=== PATIENT | male | born 1995 | race Two or more races ===

== ENCOUNTER 2022-11-18 15:19 | Emergency (ER) | payer OTHER ==
[~2022-11-18] VITALS: Ht 175.3 cm; Wt 77.1 kg
== END 2022-11-18 18:23 | disposition home or self-care (01) ==
LOC: ER 15:19
PROVIDERS: General Practice
DX: J11.1 Influenza due to unidentified influenza virus with other respiratory manifestations (principal); Z20.822 Contact with and (suspected) exposure to COVID-19; Z88.6 Allergy status to analgesic agent